=== PATIENT | male | born 1985 | race Caucasian/White ===

== ENCOUNTER 2020-10-23 03:09 | Inpatient (IN) | payer SELFPAY ==
[2020-10-23 07:00] VITALS: BMI 34.4
[2020-10-23 08:08] LABS: Troponin I 0.028 ng/mL (< 0.028)
[2020-10-23] MEDS ORDERED: Ondansetron ODT 4 MG TAB PO PRN (09:16)
[2020-10-23] MEDS ORDERED: Acetaminophen 325 MG TAB PO PRN (09:16)
[2020-10-23] MEDS ORDERED: Carvedilol 3.125 MG TAB PO SCH (09:45)
[2020-10-23] MEDS ORDERED: Lisinopril 2.5 MG TAB PO SCH (09:45)
[2020-10-23] MEDS ORDERED: Aspirin 81 mg Enteric Coated Tablet PO SCH (09:45)
[2020-10-23] MEDS ORDERED: Nitroglycerin 50 MG/250 ML BOT 0 ML ONE (15:51)
[2020-10-23] MEDS ORDERED: Heparin 10,000 UNITS/ 10 ML VIAL ONE (15:51)
[2020-10-23] MEDS ORDERED: Midazolam HCl 5 mg/5 ml Vial ONE (15:52)
[2020-10-23] MEDS ORDERED: Adenosine 6 MG/2 ML VIAL ONE (15:52)
[2020-10-23] MEDS ORDERED: Fentanyl 100 MCG/2 ML VIAL ONE (15:53)
[2020-10-23] MEDS ORDERED: Sodium Chloride 0.9% 1,000 ML ONE (15:54)
[2020-10-23] MEDS ORDERED: Lidocaine 1% (PF) 30 ML VIAL ONE (15:59)
[2020-10-23] MEDS: Furosemide 20 MG/2 ML VIAL SLOW IVP SCH (16:29)
[2020-10-23] MEDS: Carvedilol 3.125 MG TAB PO SCH (18:48)
[2020-10-23] MEDS: Atorvastatin Calcium 40 MG TAB PO SCH (20:03)
[2020-10-23] MEDS: Famotidine 20 MG TAB PO SCH (20:03)
[2020-10-24] MEDS: Furosemide 20 MG/2 ML VIAL SLOW IVP SCH (05:28)
[2020-10-24 05:42] LABS: Anion Gap 13 mmol/L (10-20); BUN (Urea Nitrogen) 19 mg/dL (8.9-20.6); Calc. Creatinine Clearance 143 mL/min (70-130); Calcium 8.5 mg/dL (7.8-10.44); Carbon Dioxide 22 mmol/L (22-29); Chloride 108 mmol/L (98-107); Glucose 119 mg/dL (70-105); Potassium 3.7 mmol/L (3.5-5.1); Sodium 139 mmol/L (136-145)
[2020-10-24 06:41] LABS: #Eosinphils 0.3 10x3/uL (0.0-0.5); #Monocytes 0.4 10x3/uL (0.0-1.1); #Neutrophils 3.9 10x3/uL (1.5-8.4); %Basophils 0.4 % (0.0-2.0); %Eosinophils 3.5 % (0.0-6.0); %Monocytes 4.7 % (0.0-10.0); %Neutrophils 52.1 % (40.0-75.0); Hemoglobin 13.4 g/dL (13.5-17.5); Mean Corpuscular HGB CONC 32.6 g/dL (32.0-36.0); Mean Corpuscular Hemoglobin 28.6 pg (27.0-33.0); Mean Corpuscular Volume 87.6 fl (81.2-95.1); Mean Platelet Volume 11.4 fl (7.4-10.4); Platelet Count 116 10x3/uL (150-450); RBC Distribution Width 13.9 % (11.5-14.5); Red Blood Cell (RBC) Count 4.69 10x6/uL (4.32-5.72); White Blood Cell (WBC) Count 7.4 10x3/uL (3.5-10.5)
[2020-10-24] MEDS ORDERED: Aspirin 81 mg Enteric Coated Tablet PO SCH (09:00)
[2020-10-24] MEDS: Lisinopril 2.5 MG TAB PO SCH (10:04)
[2020-10-24] MEDS: Famotidine 20 MG TAB PO SCH ×2 (10:04→21:15)
[2020-10-24] MEDS: Enoxaparin Sodium 40 MG/0.4 ML SYRINGE SC SCH (10:04)
[2020-10-24] MEDS: Carvedilol 3.125 MG TAB PO SCH ×2 (10:04→17:13)
[2020-10-24] MEDS ORDERED: Furosemide 40 MG/4 ML VIAL SLOW IVP SCH (13:45)
[2020-10-24] MEDS: Atorvastatin Calcium 40 MG TAB PO SCH (21:15)
[2020-10-25 05:31] LABS: Anion Gap 15 mmol/L (10-20); BUN (Urea Nitrogen) 20 mg/dL (8.9-20.6); Calc. Creatinine Clearance 136 mL/min (70-130); Carbon Dioxide 23 mmol/L (22-29); Chloride 105 mmol/L (98-107); Glucose 90 mg/dL (70-105); Potassium 3.9 mmol/L (3.5-5.1); Sodium 139 mmol/L (136-145)
[2020-10-25] MEDS: Lisinopril 2.5 MG TAB PO SCH (08:31)
[2020-10-25] MEDS: Carvedilol 3.125 MG TAB PO SCH ×2 (08:32→16:23)
[2020-10-25] MEDS: Famotidine 20 MG TAB PO SCH ×2 (08:34→20:55)
[2020-10-25] MEDS: Enoxaparin Sodium 40 MG/0.4 ML SYRINGE SC SCH (08:34)
[2020-10-25] MEDS ORDERED: Furosemide 40 MG/4 ML VIAL SLOW IVP SCH (13:00)
[2020-10-25] MEDS: Atorvastatin Calcium 40 MG TAB PO SCH (20:55)
[2020-10-26 06:01] LABS: #Eosinphils 0.2 10x3/uL (0.0-0.5); #Monocytes 0.5 10x3/uL (0.0-1.1); #Neutrophils 4.4 10x3/uL (1.5-8.4); %Basophils 0.5 % (0.0-2.0); %Eosinophils 2.8 % (0.0-6.0); %Lymphocytes 35.5 % (18.0-47.0); %Monocytes 6.1 % (0.0-10.0); %Neutrophils 54.6 % (40.0-75.0); Hemoglobin 14.2 g/dL (13.5-17.5); Mean Corpuscular HGB CONC 32.6 g/dL (32.0-36.0); Mean Corpuscular Hemoglobin 28.3 pg (27.0-33.0); Mean Corpuscular Volume 86.8 fl (81.2-95.1); Mean Platelet Volume 11.7 fl (7.4-10.4); Platelet Count 134 10x3/uL (150-450); RBC Distribution Width 13.9 % (11.5-14.5); Red Blood Cell (RBC) Count 5.01 10x6/uL (4.32-5.72); White Blood Cell (WBC) Count 8.1 10x3/uL (3.5-10.5)
[2020-10-26 06:16] LABS: Anion Gap 15 mmol/L (10-20); BUN (Urea Nitrogen) 24 mg/dL (8.9-20.6); Calc. Creatinine Clearance 139 mL/min (70-130); Calcium 9.2 mg/dL (7.8-10.44); Carbon Dioxide 25 mmol/L (22-29); Chloride 103 mmol/L (98-107); Glucose 99 mg/dL (70-105); Magnesium 2.1 mg/dL (1.6-2.6); Sodium 139 mmol/L (136-145)
[2020-10-26 06:25] LABS: INR-International Normal Ratio 1.1; PTT 24.6 sec (22.0-33.0); Prothrombin Time 12.2 sec (9.5-12.1)
[2020-10-26] MEDS: Carvedilol 3.125 MG TAB PO SCH (08:58)
[2020-10-26] MEDS ORDERED: Furosemide 40 MG/4 ML VIAL SLOW IVP SCH (09:00)
[2020-10-26] MEDS ORDERED: Vancomycin 1.5 GRAM/300 ML BAG 1.5 GM in Premix Bag 1 BAG IVPB SCH (09:30)
[2020-10-26 11:38] VITALS: TEMP 97.5
[2020-10-26] MEDS ORDERED: CEFAZOLIN 1 GM VIAL ONE ×2 (11:54→12:02)
[2020-10-26] MEDS ORDERED: Gentamicin 80 MG/2 ML VIAL ONE (11:54)
[2020-10-26] MEDS ORDERED: Sodium Chloride 0.9% 2,000 ML ONE (11:54)
[2020-10-26] MEDS ORDERED: Lidocaine 1% (PF) 30 ML VIAL ONE ×2 (11:55→13:10)
[2020-10-26] MEDS ORDERED: Fentanyl 100 MCG/2 ML VIAL ONE (12:52)
[2020-10-26] MEDS ORDERED: Midazolam HCl 5 mg/5 ml Vial ONE (12:53)
[2020-10-26 15:18] VITALS: BP 103/79
== END 2020-10-26 18:02 | disposition home or self-care (01) | DRG 222 ==
LOC: CSHTELE 06:30 → OBSVTOIN 13:39
PROVIDERS: ADMIT Family Medicine; ATTEND Internal Medicine
PROC: 4A023N7 Measurement of Cardiac Sampling and Pressure, Left Heart, Percutaneous Approach (ICD-10-PCS; 2020-10-23)
PROC: B2151ZZ Fluoroscopy of Left Heart using Low Osmolar Contrast (ICD-10-PCS; 2020-10-23)
PROC: 0JH609Z Insertion of Cardiac Resynchronization Defibrillator Pulse Generator into Chest Subcutaneous Tissue and Fascia, Open Approach (ICD-10-PCS; principal; 2020-10-26)
PROC: 02HK3KZ Insertion of Defibrillator Lead into Right Ventricle, Percutaneous Approach (ICD-10-PCS; 2020-10-26)
PROC: 02H63KZ Insertion of Defibrillator Lead into Right Atrium, Percutaneous Approach (ICD-10-PCS; 2020-10-26)
DX: I13.0 Hypertensive heart and chronic kidney disease with heart failure and stage 1 through stage 4 chronic kidney disease, or unspecified chronic kidney disease (principal); I50.23 Acute on chronic systolic (congestive) heart failure; I47.2 Ventricular tachycardia; Z91.030 Bee allergy status; B19.20 Unspecified viral hepatitis C without hepatic coma; I42.8 Other cardiomyopathies; F17.210 Nicotine dependence, cigarettes, uncomplicated; N18.2 Chronic kidney disease, stage 2 (mild); E78.5 Hyperlipidemia, unspecified
CPT/HCPCS: 33249; 36415; 71045; 80048; 83735; 84484; 85025; 85610; 85730; 93306; 93458; 99152; C1760; C1777; G0378; J0153; J0690; J1580; J1644; J1650; J1940; J2001; J2250; J3010; J3370; J7050